=== PATIENT | female | born 1980 | race Caucasian/White ===

== ENCOUNTER → 2018-04-07 | Outpatient (CLI) | payer OTHER ==
--- NOTE | 2018-04-07 17:19 | RADIOLOGY IMAGING REPORT ---
FAC[place] [facility] [place] NAME: Josie Jeffers : 1980 MR: [id number] V: [id number] EXAM DATE: ORDERING PHYSICIAN: ZIA MEJIA TECHNOLOGIST: Location: [facility] Patient: Josie Jeffers : 1980 Visit/Account:[id number] Date of Sevice: 04/07/2018 CT of the right foot INDICATION: Coalition. Pain. COMPARISON: Unavailable Technique: Axial CT images were obtained through the right foot. Reformatted coronal and sagittal im ages were reviewed. One of the following dose optimization techniques was utilized in the performance of this exam: Autom ated exposure control; adjustment of the mA and/or kV according to the patient's size; or use of an i terative reconstruction technique. Specific details can be referenced in the facility's radiology C T exam operational policy. FINDINGS: With respect to the distal tibia and distal fibula, there is no evidence of fracture. Tibiotalar join t space is maintained. No joint effusion is present. There is a well corticated ossification seen pattie ng the distal portion of the fibula in the expected location of the anterior talofibular ligament con sistent with a prior lateral ankle sprain. Similarly, a small ossification is seen medially in the ex pected location of the deltoid ligament. There is no evidence of midfoot or hindfoot coalition. The m iddle and posterior subtalar joints are normal. Midfoot joint spaces are maintained. There is a protu berant medial margin of the navicular bone consistent with a type III navicular bone. In the forefoot, metatarsals are unremarkable. Metatarsophalangeal joints and interphalangeal joints are maintained. With respect to the soft tissues, no focal swelling or fluid collection is seen. The intrinsic muscul ature of the foot appears normal. IMPRESSION: 1. No evidence of right hindfoot or midfoot coalition. 2. Type III accessory navicular bone. Correlate for symptoms. 3. Findings compatible with prior medial and lateral ankle sprains with well-corticated ossifications along the distal tips of the medial and lateral malleoli. Report Dictated By: Anjum Hdz at 04/07/2018 5:07 PM Report E-Signed By: Anjum Hdz at 04/07/2018 5:15 PM WSN:[id number]
== END ==
LOC: CT 06:55
PROVIDERS: ATTEND Orthopaedic Surgery
DX: S93.491S Sprain of other ligament of right ankle, sequela (principal)